=== PATIENT | female | born 1975 | race Asian ===

== ENCOUNTER → 2017-05-20 | Outpatient (CLI) | payer OTHER ==
[~2017-05-20] MED LIST: DIPH-1 PO; IBU800 PO; LANS30CA63; OMEP-114; ONDA4TAB PO; PER PO; PREN-85 PO
--- NOTE | 2017-05-20 13:28 | RADIOLOGY IMAGING REPORT ---
FACILITY: [facility] PATIENT NAME: LUIS ALBERTO MARSHALL : [id number] MR: [id number] V: [id number] EXAM DATE: ORDERING PHYSICIAN: DOMONIQUE GRANT TECHNOLOGIST: Lyn Lorenzana PROCEDURE:BILATERAL DIAGNOSTIC DIGITAL MAMMOGRAM WITH CAD ASSISTED INTERPRETATION & 3D TOMOSYNTHESIS COMPARISON:None. INDICATIONS:LT BREAST LUMP APPROXIMATE 3 O'CLOCK POSITION. FINDINGS: Moderately dense fibroglandular tissue is seen throughout the breasts. There is no demonstration of malignant appearing mass, malignant appearing calcifications or other secondary sign of malignancy in either breast. DIAGNOSTIC CATEGORY 2--BENIGN FINDING. RECOMMENDATIONS: ROUTINE MAMMOGRAM AND CLINICAL EVALUATION. IMPRESSION: BIRADS 2: Benign finding No significant abnormality is seen. Clinical follow-up recommended for patient's palpable finding in the 3 o'clock position of the Left breast. Note today's targeted Left breast Ultrasound likewise revealed no abnormality Dictated by: Lydia Foster M.D. on 05/20/2017 at 10:32 Transcribed by: SHAR on 05/20/2017 at 13:16 Approved by: Lydia Foster M.D. on 05/20/2017 at 13:27 [facility]
--- NOTE | 2017-05-24 10:10 | RADIOLOGY IMAGING REPORT ---
FACILITY: [facility] PATIENT NAME: LUIS ALBERTO MARSHALL : [id number] MR: [id number] V: [id number] EXAM DATE: [id number] ORDERING PHYSICIAN: DOMONIQUE GRANT TECHNOLOGIST: Geri Shaw PROCEDURE:US LEFT BREAST COMPLETE COMPARISON:None. INDICATIONS:LT BREAST LUMP APPROXIMATE 3 O'CLOCK POSITION. FINDINGS: Multiple images were obtained through the Left breast from the 12 to 6 o'clock position revealing no sonographic abnormality. Today's mammogram also revealed no abnormality but clinical follow-up recommended for patient's palpable findings DIAGNOSTIC CATEGORY 2--BENIGN FINDING. RECOMMENDATIONS: ROUTINE MAMMOGRAM AND CLINICAL EVALUATION. CLINICAL EVALUATION. IMPRESSION: BIRADS 2: Benign finding No sonographic abnormality identified of the Left breast therefore clinical follow-up recommended for patient's palpable findings. Dictated by: Lydia Foster M.D. on 05/23/2017 at 9:50 Transcribed by: SHAR on 05/23/2017 at 11:37 Approved by: Lydia Foster M.D. on 05/24/2017 at 10:09 [facility]
== END ==
LOC: MAMO 03:06
PROVIDERS: ATTEND Obstetrics & Gynecology
DX: N63.20 Unspecified lump in the left breast, unspecified quadrant (principal)
CPT/HCPCS: 77062; 77066

== ENCOUNTER → 2017-06-27 | Outpatient (CLI) | payer OTHER | LOC: LAB 10:00 | PROVIDERS: ATTEND Internal Medicine Gastroenterology | DX: B18.1 Chronic viral hepatitis B without delta-agent (principal) | CPT/HCPCS: 36415; 87517 ==

== ENCOUNTER → 2017-08-29 | Outpatient (CLI) | payer OTHER ==
[~2017-08-29] MED LIST changes: +IOPAMIDOL 76% 75 ML INFUS BTL 75 ML ONE
--- NOTE | 2017-08-29 18:17 | RADIOLOGY IMAGING REPORT ---
FACILITY: [facility] PATIENT NAME: Charito Mccoy : 1975 MR: [id number] V: [id number] EXAM DATE: ORDERING PHYSICIAN: FREDY HALL TECHNOLOGIST: Location: [facility] Patient: Charito Mccoy : 1975 Visit/Account:[id number] Date of Sevice: 08/29/2017 ABDOMEN/PELVIS WITH CONTRAST HISTORY: Pain in middle of abdomen TECHNIQUE: Following administration of IV contrast contiguous axial images acquired through the abdom en/pelvis. Coronal and sagittal reformatting also performed. Dose Lowering Technique One of the following dose optimization techniques was utilized in the performance of this exam: Autom ated exposure control; adjustment of the mA and/or kV according to the patient's size; or use of an i terative reconstruction technique. Specific details can be referenced in the facility's radiology C T exam operational policy. CONTRAST: 75 mL [id number] COMPARISON: January 04, 2013 FINDINGS: Visualized lung bases: Negative. Hepatobiliary: Negative. Spleen: Negative. Adrenals: Negative. Pancreas: Negative. Kidneys ureters or bladder: Negative. Genitalia: Negative. GI: The appendix is visualized and does not appear inflamed there is no evidence of bowel obstructio n or bowel wall thickening Vessels/spaces/nodes: Negative. Bones/soft tissues: There is a small umbilical hernia containing fat Additional findings: None pertinent. IMPRESSION: Small umbilical hernia containing fat otherwise unremarkable abdomen and pelvis CT Report Dictated By: Lydia Foster MD at 08/29/2017 6:07 PM Report E-Signed By: Lydia Foster MD at 08/29/2017 6:13 PM WSN:[email or web address]
--- NOTE | 2017-08-29 19:10 | RADIOLOGY IMAGING REPORT ---
[place] [facility] [place]: Charito Mccoy : 1975 MR: [id number] V: [id number] EXAM DATE: ORDERING PHYSICIAN: FREDY HALL TECHNOLOGIST: Location: [facility] [place] Patient: Charito Mccoy : 1975 Visit/Account:[id number] Date of Sevice: 08/29/2017 EXAMINATION: CT HEAD WITHOUT CONTRAST COMPARISON: None available HISTORY: Headache for months. PROCEDURE: Noncontrast CT from the vertex through the skull base. One of the following dose optimizat ion techniques was utilized in the performance of this exam: Automated exposure control; adjustment o f the mA and/or kV according to the patient's size; or use of an iterative reconstruction technique. Specific details can be referenced in the facility's radiology CT exam operational policy. FINDINGS: Brain volume: Age-appropriate. Hemorrhage/extra-axial fluid: None. Mass effect/midline shift/edema: None. Ischemia: Kowalski-white differentiation is preserved. Ventricles and basal cisterns: Within normal limits. Posterior fossa: Negative. Vessels: Negative. Calvarium, skull base, and scalp: Negative. Visualized sinuses and orbits: Within normal limits. IMPRESSION: Negative age-appropriate noncontrast head CT. Report Dictated By: Nick Monteiro MD at 08/29/2017 7:03 PM Report E-Signed By: Nick Monteiro MD at 08/29/2017 7:06 PM WSN:[id number]
== END ==
LOC: CT 16:16
PROVIDERS: ATTEND Physician Assistant
DX: K42.9 Umbilical hernia without obstruction or gangrene (principal); R51 Headache; R42 Dizziness and giddiness
CPT/HCPCS: 70450; 74177; Q9967

== ENCOUNTER → 2017-09-27 | Outpatient (CLI) | payer OTHER ==
[~2017-09-27] MED LIST changes: -IOPAMIDOL 76% 75 ML INFUS BTL 75 ML ONE
--- NOTE | 2017-09-27 10:12 | RADIOLOGY IMAGING REPORT ---
FACILITY: [facility] PATIENT NAME: Charito Mccoy : 1975 MR: [id number] V: [id number] EXAM DATE: ORDERING PHYSICIAN: JESUS ALBERTO AGUILAR TECHNOLOGIST: [place] [facility] [place] Charito Mcc[place] : 1975 Visit/Account:[id number] Date of Sevice: 09/27/2017 Examination: MR brain without contrast History: Headache Comparison: Head CT August 29, 2017 Technique: Multiplane MR imaging was performed through the brain without contrast. Findings: Diffusion: None Ventricles: Normal Midline shift: None Extraaxial fluid: None. Midline craniocervical structures: 4 mm rounded nodule in the pituitary gland region, sagittal T1 efrain ge 11. Parenchyma: Normal Vascular flow voids: Normal Orbits and paranasal sinuses: Normal Impression: 1. 4 mm apparent nodule in the pituitary gland region may represent a microadenoma or a Rathke's clef t cyst and is incompletely characterized on this dedicated brain MR. Recommend pituitary MR without and with contrast for further characterization. 2. Otherwise normal brain MR without contrast. Report Dictated By: Max Bennett MD at 09/27/2017 9:29 AM Report E-Signed By: Max Bennett MD at 09/27/2017 9:35 AM WSN:[email or web address]
--- NOTE | 2017-09-27 10:14 | RADIOLOGY IMAGING REPORT ---
FACILITY: [facility] [place] PATIENT NAME: Charito Mccoy : 1975 MR: [id number] V: [id number] EXAM DATE: ORDERING PHYSICIAN: JESUS ALBERTO AGUILAR TECHNOLOGIST: Location: [facility] Patient: Charito Mccoy : 1975 Visit/Account:[id number] Date of Sevice: 09/27/2017 EXAMINATION: C SPINE W/O CONTRAST INDICATION: Neck stiffness, headache COMPARISON: None TECHNIQUE: Multiplane MR imaging was performed through the cervical spine without contrast. FINDINGS: Vertebral body height: Normal Cord signal: Normal Marrow signal: Benign hemangiomas within the C7, T1 and T3 spinous processes as well as T3 vertebral body. Prevertebral and paraspinal soft tissues: Normal C2-3: Normal C3-4: Minimal disc protrusion, no canal narrowing, mild left foraminal narrowing. C4-5: Normal C5-6: Normal C6-7: Minimal right foraminal narrowing, otherwise normal. C7-T1: Normal IMPRESSION: 1. Mild left C3-4 and minimal right C6-7 foraminal narrowing. 2. Otherwise normal cervical spine MRI. Report Dictated By: Max Bennett MD at 09/27/2017 9:58 AM Report E-Signed By: Max Bennett MD at 09/27/2017 10:02 AM WSN:[email or web address]
== END ==
LOC: MRI 09-08 01:00
PROVIDERS: ATTEND Psychiatry & Neurology Neurology
DX: D35.2 Benign neoplasm of pituitary gland (principal)
CPT/HCPCS: 70551; 72141

== ENCOUNTER → 2017-10-03 | Outpatient (CLI) | payer OTHER ==
[~2017-10-03] MED LIST changes: +GADOBENATE 529MG/1ML 15ML VIAL IVP ONE; +NS 0.9% 25 ML BAG 25 ML ONE
--- NOTE | 2017-10-03 12:22 | RADIOLOGY IMAGING REPORT ---
FACILITY: [facility] [place] PATIENT NAME: Charito Mccoy : 1975 MR: [id number] V: [id number] EXAM DATE: ORDERING PHYSICIAN: JESUS ALBERTO AGUILAR TECHNOLOGIST: Location: [facility] [place] Patient: Charito Mccoy : 1975 Visit/Account:[id number] Date of Sevice: 10/03/2017 Examination: Pituitary MR without and with contrast History: Pituitary lesion Comparison: September 27, 2017 Technique: Multiplane pre and postcontrast MR imaging performed through the pituitary gland/sella reg ion. 13 mL MultiHance injected. Diffusion and FLAIR acquisitions obtained through the brain. Findings: No diffusion restriction, hydrocephalus or midline shift. No parenchymal signal abnormality. Normal optic chiasm and cavernous sinuses. Round nonenhancing structure just above the right aspect of the pituitary gland and to the right of t he lower aspect of the infundibulum measures 4.7 x 4 x 4.8 mm. The infundibulum is normal in size and is minimally displaced towards the left. IMPRESSION: 4.7 x 4 x 4.8 mm nonenhancing structure just superior to the right aspect of the pituitary gland and immediately adjacent to the inferior aspect of the infundibulum. 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 A cystic microadenoma is felt less likely but cannot be entirely excluded. A c raniopharyngioma is felt less likely. Follow-up imaging may be warranted to ensure stability over time. Report Dictated By: Max Bennett MD at 10/03/2017 12:11 PM Report E-Signed By: Max Bennett MD at 10/03/2017 12:18 PM WSN:[email or web address]
== END ==
LOC: MRI 06:54
PROVIDERS: ATTEND Psychiatry & Neurology Neurology
DX: E23.6 Other disorders of pituitary gland (principal)
CPT/HCPCS: 70553; A9577

== ENCOUNTER → 2018-07-14 | Outpatient (CLI) | payer BC ==
[~2018-07-14] MED LIST changes: -GADOBENATE 529MG/1ML 15ML VIAL IVP ONE; -NS 0.9% 25 ML BAG 25 ML ONE
== END ==
LOC: LAB 09:10
PROVIDERS: ATTEND Internal Medicine Gastroenterology
DX: B19.10 Unspecified viral hepatitis B without hepatic coma (principal)
CPT/HCPCS: 36415; 82040; 82247; 82248; 84075; 84155; 84450; 84460